=== PATIENT | female | born 1955 | race Caucasian/White ===

== ENCOUNTER 2021-02-23 10:10 | Emergency (ER) | payer BC ==
[2021-02-23] MEDS ORDERED: methylPREDNISolone Sodium Succinate 125 MG/2 ML SDV IVPUSH ONE (10:21)
[2021-02-23] MEDS ORDERED: diphenhydrAMINE 50 MG/ML SDV IVPUSH ONE (10:22)
--- NOTE | 2021-02-23 11:28 | EDM.PDOC ---
ED HPI GENERAL MEDICAL PROBLEM - General Chief Complaint: Allergic Reaction Stated Complaint: ALLERGIC REACTION Time Seen by Provider: 02/23/21 10:10 - History of Present Illness INITIAL COMMENTS - FREE TEXT/NARRATIVE: Patient comes to the ER with complaints of facial swelling and severe itching. This started about 2 hours ago after eating breakfast. She did take 2 Benadryl and this seems to help just slightly with the itching. She denies any problems with breathing shortness of breath wheezing or swelling of the tongue or lips. Patient tells me she had 1 previous episode a couple of months ago after having a fish [place]. Benadryl was used at that time and it controlled her symptoms which were not as bad as they are today. Patient has no other known allergies. - Related Data Allergies Allergy/AdvReac Type Severity Reaction Status Date / Time No Known Allergies Allergy Verified 02/23/21 10:33 Home Meds: Home Meds NK [No Known Home Meds] 02/23/21 [History] Past Medical History SR[employer] History: Reports: Endometriosis - Past Surgical History Musculoskeletal Surgical History: Reports: Shoulder Surgery Social & Family History - Caffeine Use Caffeine Use: Reports: Coffee - Recreational Drug Use Recreational Drug Use: No ED ROS ALLERGIC REACTION - Review of Systems Review Of Systems: Comprehensive ROS is negative, except as noted in HPI. Skin: Reports: Pruritis, Rash ED EXAM GENERAL NO PERIP PULSE - Physical Exam Exam: See Below Text/Narrative:: Patient is awake and alert she is itching aggressively her arms and chest and and face. There is no shortness of breath noted. Vital signs are reviewed and they are within normal limits. Lungs are clear to auscultation with good air exchange. No rales wheezes or rhonchi noted. Oral extremities are moist I do not see any obvious swelling of the tongue or lips. The rash on her face Course - Vital Signs Last Recorded V/S: Last Vital Signs Temp 98.3 F 02/23/21 10:10 Pulse 90 02/23/21 10:10 Resp 16 02/23/21 10:10 BP 146/88 H 02/23/21 10:39 Pulse Ox 99 02/23/21 10:10 - Orders/Labs/Meds Meds: Medications Discontinued Medications Generic Name Dose Route Start Last Admin Trade Name Freq PRN Reason Stop Dose Admin Diphenhydramine HCl 50 mg 02/23/21 10:22 02/23/21 10:25 Diphenhydramine 50 Mg/Ml Sdv IVPUSH 02/23/21 10:23 50 mg ONETIME ONE Administration Methylprednisolone Sodium Succinate 125 mg 02/23/21 10:21 02/23/21 10:27 Methylprednisolone Sodium Succinate 125 Mg/2 Ml Sdv IVPUSH 02/23/21 10:22 125 mg ONETIME ONE Administration - Re-Assessments/Exams Free Text/Narrative Re-Assessment/Exam: 02/23/21 11:26 The patient responded quickly to the Solu-Medrol and Benadryl given IV we monitored her for approximately 30 minutes and her condition steadily improved she was no longer itchy and the rash has mostly resolved. She will be discharged home with instructions to use Benadryl the remaining portion of the day taking 1 or 2 tablets every 6-8 hours. I will give her an EpiPen pen prescription that she can use if her symptoms get worse and I gave her instructions on how to use this injected into the thigh as needed right through her clothing. She is instructed to follow-up with her primary care provider to further discuss her allergies and to consider a possible referral to an resident assistant. Departure - Departure Time of Disposition: 10:45 Disposition: Home, Self-Care 01 Condition: Good Clinical Impression: Allergic reaction Qualifiers: Encounter type: initial encounter Qualified Code(s): T78.40XA - Allergy, unspecified, initial encounter - Discharge Information *PRESCRIPTION DRUG MONITORING PROGRAM REVIEWED*: Not Applicable *COPY OF PRESCRIPTION DRUG MONITORING REPORT IN PATIENT MATT: Not Applicable Instructions: Epinephrine injection, Anaphylactic Reaction, Adult, Biin-ca-Dcys Referrals: PCP,None [Primary Care Provider] - Forms: ED Department Discharge Additional Instructions: Discharge home. Follow up with a provider and discuss allergy testing. Continue taking Benadryl for the rest of the day. Care Plan Goals: Continue using Benadryl today. Epi pen was prescribed for her. She is to use it if her symptoms get worse, or if she has another episode. She is to follow up in the clinic soon for re check. Consider Allergy testing. Sepsis Event Note (ED) - Evaluation Sepsis Screening Result: No Definite Risk - Focused Exam Vital Signs: Vital Signs Temp Pulse Resp BP Pulse Ox 02/23/21 10:39 146/88 H 02/23/21 10:10 98.3 F 90 16 134/110 H 99
== END 2021-02-23 11:10 | disposition home or self-care (01) ==
LOC: LB.ED 10:10
DX: T78.1XXA Other adverse food reactions, not elsewhere classified, initial encounter (principal)
CPT/HCPCS: 96374; 96375; 99283; J1200; J2930